=== PATIENT | female | born 1995 | race Caucasian/White ===

== ENCOUNTER 2018-05-10 18:39 | Emergency (ER) | payer OTHER ==
[~2018-05-10] VITALS: Ht 152.4 cm; Wt 60.1 kg
[~2018-05-10 18:39] MED LIST: PREN-385 PO
[2018-05-10 19:01] VITALS: BP 121/86
--- NOTE | 2018-05-10 19:08 | NUR ---
PT AMBULATES TO BED 8
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
--- NOTE | 2018-05-10 19:14 | NUR ---
REPORT GIVEN TO MADY NOYOLA
[2018-05-10 22:07] VITALS: BP 110/66
== END 2018-05-10 22:08 | disposition home or self-care (01) ==
LOC: MED 18:39
DX: T38.0X5A Adverse effect of glucocorticoids and synthetic analogues, initial encounter (principal); T40.2X5A Adverse effect of other opioids, initial encounter; B02.9 Zoster without complications; R20.2 Paresthesia of skin; Y92.89 Other specified places as the place of occurrence of the external cause; Z79.899 Other long term (current) drug therapy
CPT/HCPCS: 99283

== ENCOUNTER 2018-06-07 12:51 | Emergency (ER) | payer OTHER ==
[~2018-06-07] VITALS: Ht 152.4 cm; Wt 59.9 kg
[2018-06-07 13:00] VITALS: BP 130/77
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
[2018-06-07 13:55] VITALS: BP 130/77
--- NOTE | 2018-06-07 14:01 | NUR ---
VERBAL ORDER GIVEN FROM MADY ALVARADO FOR A CHAMP WRAP OF THE LEFT ANKLE. PT LEFT ANKLE WRAPPED IN A CHAMP WRAP 3 STARTING DISTALLY TO THE TOP OF THE ANKLE. PMSCs INTACT. PT ASKED IF CHAMP WRAP IS TOO TIGHT TO WHICH THE PT STATED "NO IT IS FINE."
== END 2018-06-07 13:55 | disposition home or self-care (01) ==
LOC: MED 12:51
DX: S93.402A Sprain of unspecified ligament of left ankle, initial encounter (principal); S20.212A Contusion of left front wall of thorax, initial encounter; V49.40XA Driver injured in collision with unspecified motor vehicles in traffic accident, initial encounter; Y93.89 Activity, other specified; Y92.89 Other specified places as the place of occurrence of the external cause; Y99.8 Other external cause status
CPT/HCPCS: 71045; 73610; 99284; Q0092

== ENCOUNTER 2022-01-13 12:27 | Emergency (ER) | payer OTHER ==
[~2022-01-13] VITALS: Ht 152.4 cm; Wt 64.4 kg
[2022-01-13 12:29] VITALS: BP 136/83
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
--- NOTE | 2022-01-13 13:18 | NUR ---
LAB AT BEDSIDE
[2022-01-13 13:20] LABS: APPEARANCE,URINE CLEAR (CLEAR); BILIRUBIN,URINE NEGATIVE (NEGATIVE); BLOOD, URINE TRACE-I (NEGATIVE); COLOR,URINE YELLOW (YELLOW); LEUKOCYTE ESTERASE ,URINE NEGATIVE (NEGATIVE); NITRITE, URINE NEGATIVE (NEGATIVE); UGLUCOSE NEGATIVE (NEGATIVE)
[2022-01-13 13:22] LABS: BASOPHILS # (AUTO) 0.4 K/uL (0.00-0.22); BASOPHILS % (AUTO) 4.7 % (0.0-2.0); EOSINOPHILS # (AUTO) 0.2 K/uL (0-0.4); EOSINOPHILS % (AUTO) 2.5 % (0.0-4.0); HEMATOCRIT 38.7 % (36-48); HEMOGLOBIN 13.4 g/dL (12.0-16.0); LYMPHOCYTES # (AUTO) 1.6 K/uL (2.5-16.5); LYMPHOCYTES % (AUTO) 17.6 % (20.5-51.1); MEAN CORPUSCULAR HEMOGLOBIN 32 pg (27-31); MEAN CORPUSCULAR HGB CONC 35 g/dL (33-37); MEAN CORPUSCULAR VOLUME 91.2 fL (80-94); MONOCYTES # (AUTO) 0.5 K/uL (0.8-1.0); MONOCYTES % (AUTO) 5.4 % (1.7-9.3); NEUTROPHILS # (AUTO) 6.2 K/uL (1.8-7.7); NEUTROPHILS % (AUTO) 69.8 % (42.2-75.2); PLATELET COUNT (AUTO) 271 K/uL (140-450); RED BLOOD CELL COUNT(AUTO) 4.25 MIL/uL (4.20-5.40); RED CELL DISTRIBUTION WIDTH 13.1 % (11.6-13.7); WHITE BLOOD COUNT (AUTO) 8.9 K/uL (4.8-10.8)
[2022-01-13] MEDS ORDERED: ACETAMINOPHEN 325 MG TAB PO ONE (14:45)
[2022-01-13] MEDS ORDERED: ACET-2619 PO (14:50)
[2022-01-13 15:13] VITALS: BP 113/89
== END 2022-01-13 15:14 | disposition home or self-care (01) ==
LOC: MED 12:27
DX: O26.891 Other specified pregnancy related conditions, first trimester (principal); R03.0 Elevated blood-pressure reading, without diagnosis of hypertension; R10.2 Pelvic and perineal pain; Z3A.01 Less than 8 weeks gestation of pregnancy; Z79.899 Other long term (current) drug therapy
CPT/HCPCS: 36415; 76817; 81003; 81025; 84702; 85025; 99284; Q0092